=== PATIENT | male | born 1940 | race Caucasian/White ===

== ENCOUNTER 2021-11-24 14:02 | Emergency (ER) | payer OTHER, MEDICARE ==
[~2021-11-24] VITALS: Ht 170.2 cm; Wt 65.0 kg
[2021-11-24 15:15] LABS: BASOPHILS # (AUTO) 0.1 X10'3 (0-0.2); BASOPHILS % (AUTO) 0.6 % (0-1); EOSINOPHILS # (AUTO) 0.2 X10'3 (0-0.9); EOSINOPHILS % (AUTO) 2.3 % (0-6); HEMATOCRIT 40.8 % (42.0-52.0); HEMOGLOBIN 14.2 g/dl (14.0-17.9); LYMPHOCYTES # (AUTO) 1.6 X10'3 (1.1-4.8); LYMPHOCYTES % (AUTO) 17.1 % (21-51); MEAN CORPUSCULAR HEMOGLOBIN 32.4 PG (27.0-31.0); MEAN CORPUSCULAR HGB CONC 34.8 g/dL (33.0-36.5); MEAN CORPUSCULAR VOLUME 93.1 FL (78-98); MEAN PLATELET VOLUME 8.3 FL (7.4-10.4); MONOCYTES # (AUTO) 0.8 X10'3 (0-0.9); MONOCYTES % (AUTO) 8.1 % (2-12); NEUTROPHILS # (AUTO) 6.8 X10'3 (1.8-7.7); NEUTROPHILS % (AUTO) 71.9 % (42-75); PLATELET COUNT 159 X10'3 (140-440); RED BLOOD COUNT 4.39 X10'6 (4.70-6.10); RED CELL DISTRIBUTION WIDTH 13.6 % (11.5-14.5); WHITE BLOOD COUNT 9.5 X10'3 (4.5-11.0)
[2021-11-24 15:17] LABS: ALANINE AMINOTRANSFERASE 16 U/L (12-78); ALBUMIN 4.2 G/DL (3.4-5.0); ALBUMIN/GLOBULIN RATIO 1.1 (1.1-1.5); ALKALINE PHOSPHATASE 57 IU/L (46-116); ANION GAP 10 (8-16); ASPARTATE AMINO TRANSFERASE 19 U/L (10-37); BILIRUBIN,TOTAL 0.4 MG/DL (0.1-1.0); BLOOD UREA NITROGEN 12 MG/DL (7-18); BUN/CREATININE RATIO 9.7 (5.4-32.0); CALCIUM 9.3 MG/DL (8.5-10.1); CHLORIDE 105 MMOL/L (99-107); CREATININE 1.24 MG/DL (0.60-1.10); GLUCOSE 113 MG/DL (70-104); POTASSIUM 4.1 MMOL/L (3.5-5.1); SODIUM 144 MMOL/L (135-145); TOTAL CARBON DIOXIDE 29.1 MMOL/L (24-32); TOTAL PROTEIN 7.9 G/DL (6.4-8.2); eGFR 56 ML/MIN
[2021-11-24] MEDS ORDERED: SIMV-42 PO (15:18)
[2021-11-24] MEDS ORDERED: NIFE60TA79 PO (15:18)
[2021-11-24] MEDS ORDERED: LISI40TA13 PO (15:18)
[2021-11-24] MEDS ORDERED: CETI5TAB21 PO (15:18)
[2021-11-24] MEDS ORDERED: SYN0.088T PO (15:18)
[2021-11-24] MEDS ORDERED: ROPI1TAB6 PO (15:18)
[2021-11-24] MEDS ORDERED: CARV-50 PO (15:18)
[2021-11-24] MEDS ORDERED: codeine (15:18)
[2021-11-24] MEDS ORDERED: IBUP-1984 PO (15:18)
[2021-11-24] MEDS ORDERED: TERA5CAP4 PO (15:18)
[2021-11-24 15:19] LABS: ETHANOL < 0.010 GM/DL (0.0-0.010)
[2021-11-24] MEDS ORDERED: OLANZapine **IM** 10 mg inj. IM ONE (15:25)
--- NOTE | 2021-11-24 15:34 | NUR ---
Pt became very aggitated and refused to have a head CT. Walked out of his room with clinched fists and stated that he was leaving. Security and staff had to intervine and physically return him to his room.
--- NOTE | 2021-11-24 15:56 | NUR ---
Pt is continuing to refuse to have a CT and refuses stay in bed. Provider is aware.
[2021-11-24] MEDS ORDERED: diphenhydrAMINE 50 mg/ml inj IM ONE (16:55)
[2021-11-24 18:01] LABS: URINE AMPHETAMINE SCREEN NEGATIVE (Neg); URINE BARBITUATE SCREEN NEGATIVE (Neg); URINE BENZODIAZEPINES SCREEN NEGATIVE (Neg); URINE CANNABINOID SCREEN NEGATIVE (Neg); URINE COCAINE SCREEN NEGATIVE (Neg); URINE METHADONE SCREEN NEGATIVE (Neg); URINE OPIATE SCREEN POSITIVE (Neg); URINE PHENCYCLIDINE SCREEN NEGATIVE (Neg)
[2021-11-24] MEDS ORDERED: ketamine 50 mg/ml 10ml vial IM ONE ×2 (18:50)
[2021-11-24 22:19] LABS: CLARITY,URINE CLEAR (Clear); COLOR,URINE YELLOW (Yellow); GLUCOSE, URINE NEGATIVE (Neg); KETONES,URINE NEGATIVE (Neg); LEUKOCYTE ESTERASE ,URINE NEGATIVE (Neg); NITRITES, URINE NEGATIVE (Neg); OCCULT BLOOD,URINE NEGATIVE (Neg); PH,URINE 5.5 (4.8-8.0); PROTEIN,URINE NEGATIVE (Neg); UROBILINOGEN,URINE 0.2 E.U/dL (0.2-1.0)
[2021-11-24 22:20] LABS: UA COLLECTION TYPE CLN CATCH MIDSTREAM
--- NOTE | 2021-11-25 00:44 | NUR ---
Patient arrived in ED overflow. Patient was disoriented and needed to use the restroom. The pt presented very weak and needed assistance to walk to the restroom. patient used restroom with help then went to bed with assistance. Patient in bed appears to be sleeping at this time.
--- NOTE | 2021-11-25 01:07 | NUR ---
faxed packet to [facility] with ESTRELLA Ramesh
[2021-11-25] MEDS: carVEDilol 12.5mg tablet PO SCH ×2 (01:37→20:00)
--- NOTE | 2021-11-25 02:01 | NUR ---
pt refused blood pressure in order to get his Coreg medication at 0201
--- NOTE | 2021-11-25 02:05 | NUR ---
New order for Carvedilol 25mg ordered from ED provider, pt refused blood pressure to be taken and medication stating, "I don't care, I wont take it!, Let me sleep!" Patient currently lying in bed and appears to be sleeping. Will continue to monitor.
--- NOTE | 2021-11-25 02:28 | NUR ---
ED provider notified about pt's refusal to take heart medication and blood pressure.
[2021-11-25] MEDS ORDERED: ibuprofen 200mg tablet PO PRN (03:56)
--- NOTE | 2021-11-25 04:33 | NUR ---
Patient appears to be sleeping at this time. Moans on and off during sleep.
--- NOTE | 2021-11-25 07:00 | NUR ---
Patient is sleeping quietly, no distress.
[2021-11-25] MEDS: atorvastatin 20mg tablet PO SCH (08:00)
--- NOTE | 2021-11-25 09:29 | NUR ---
[facility] attempted to interview patient. He would not awaken. He has not eaten breakfast. This automobile service writer will allow patient to sleep for a while. When patient awakens attempts will be made to administer medications. Patient is in view from nurses station. He has self repositioned in bed. No distress noted.
[2021-11-25] MEDS: levoTHYROXINE 88mcg tablet PO SCH (10:16)
[2021-11-25] MEDS: cetirizine 10mg tablet PO SCH (10:16)
[2021-11-25] MEDS: lisinopril 20mg tablet PO SCH (10:26)
[2021-11-25] MEDS: NIFEdipine XL 30mg tablet PO SCH (10:33)
[2021-11-25] MEDS ORDERED: acetaminophen w/codeine (30MG) #3 tablet PO ONE (10:35)
--- NOTE | 2021-11-25 11:56 | NUR ---
Patient is alert, he is aware of time and place. He exhibits a lack of comprehention about his paranoia and thoughts of shooting people that are coming onto his property. Patient did get up to void. He did not eat his breakfast as it was cold. The patient was reluctantly compliant with taking his medications. He was given Tylenol #3 for back pain. Patient had interviewed by [facility] and told he was going to be placed on a 5150. When this justowriter operator returned with a turkey sandwich that this patient requested, the patient was in a labile mood. He stated he would not eat his turkey sandwich, "I'm not going to eat anymore. I'm going to here!
--- NOTE | 2021-11-25 12:19 | NUR ---
Patient is sleeping quietly on his left side.
--- NOTE | 2021-11-25 14:02 | NUR ---
Patient is awake, laying in bed in a mid fowlers position. He is choosing not to speak at this time.
--- NOTE | 2021-11-25 17:14 | NUR ---
Patient is sleeping, he cooperated with vital signs being taken.
--- NOTE | 2021-11-25 20:02 | NUR ---
Pt was in bed at change of shift, he states he wants to go home and is refusing to talk about anything but going home. Pt got up to use the restroom, "I pissed myself now and I hope you're all happy!" Pt was offered a change of clothing.
[2021-11-25] MEDS: terazosin 5mg capsule PO SCH (20:13)
[2021-11-25] MEDS: ROPINIRole 1mg tablet PO SCH (20:13)
--- NOTE | 2021-11-25 20:15 | NUR ---
Pt is refusing medications. Pt states "My gives me my meds at home and I take the meds I have at home, I'm a tax paying citizen and I don't want to be here! I have the right to defend my property!" Attempted to reason with patient, if he is uncomfortable and in pain, I'm offering prn motrin. Pt states "I dont care I'm not taking anything." Provided pt with education regarding his HS meds and pt continued to refuse. "I dont know why you're talking to me, I don't want to be here." Pt is also refusing to change the pants he urinated in. Pt has clean pants provided at the end of his bed.
--- NOTE | 2021-11-25 21:48 | NUR ---
Pt is moaning in bed and was offered medications again and again refused. Pt states "I hope I fall out of this bed and crack my head open!" Pts bed was lowered to the floor and he was given a warm blanket. Pt stopped moaning briefly then continued to moan and groan loudly a short time later.
--- NOTE | 2021-11-26 00:36 | NUR ---
pt appears to be sleeping rr even and unlabored
--- NOTE | 2021-11-26 03:29 | NUR ---
Pt is laying on his right side appears to be asleep rr 14
--- NOTE | 2021-11-26 03:56 | NUR ---
Pt got up and used the restroom and returned to bed. Pt was offered another blanket and states "I dont want anything from this place! I wanna go home. Im not taking anything and Im not eating until I go home!"
--- NOTE | 2021-11-26 04:55 | NUR ---
pt laying on his right side appears to be sleeping rr even and unlabored
--- NOTE | 2021-11-26 06:37 | NUR ---
Assumed patiebt care at this time.
[2021-11-26] MEDS: levoTHYROXINE 88mcg tablet PO SCH (08:00)
[2021-11-26] MEDS: atorvastatin 20mg tablet PO SCH (08:00)
[2021-11-26] MEDS: NIFEdipine XL 30mg tablet PO SCH (08:00)
[2021-11-26] MEDS: cetirizine 10mg tablet PO SCH (08:00)
[2021-11-26] MEDS: lisinopril 20mg tablet PO SCH (08:00)
--- NOTE | 2021-11-26 12:05 | NUR ---
This television writer had long conversation with patient about his medications, need for being here. Patient states he doesnt trust any other healthcare system besides the [place] and his . Rn Maternity explained to him the medications are the same ones he takes at home. He still refuses. Patient states" I wont take any medicine, I wont eat, I wont drik water, I dont want you to ask me anymore, I wont do anything until I am back at home with my ." Patient the proceded to lay down on bed.
--- NOTE | 2021-11-26 13:19 | NUR ---
Patient ambulated to restroom slowly. refuses help.
--- NOTE | 2021-11-26 13:22 | NUR ---
Patient and moaning and groaning. Patient c/o lower back pain, but states he wont take any medication here.
--- NOTE | 2021-11-26 15:05 | NUR ---
Patient laying down on stretcher, appears to be sleeping.
--- NOTE | 2021-11-26 15:34 | NUR ---
Patient relocated his bedside table out side his room
--- NOTE | 2021-11-26 16:08 | NUR ---
Patient laying down on stretcher, appears to be sleeping.
--- NOTE | 2021-11-26 16:16 | NUR ---
Patient mabulated to the restroom.
--- NOTE | 2021-11-26 16:24 | NUR ---
Pili called at 1625 today asking for an update on her . She was told that he has been resting today and that he will be reevaluated again tomorrow. She would like a call to be made to her after the evaluationn tomorrow 11/27 to see where her is at regarding coming home or awaiting placement.
--- NOTE | 2021-11-26 17:15 | NUR ---
Patient ambulated to the restoom.
--- NOTE | 2021-11-26 17:23 | NUR ---
Patient refused vital signs to be taken by this tech. "[facility] so [facility]'t [facility]. I'm not doing anything til I get out of here. "
--- NOTE | 2021-11-26 17:56 | NUR ---
Patient laying down on bed, awake, quiet.
--- NOTE | 2021-11-26 19:00 | NUR ---
Pt is laying awake in bed he is still refusing to eat or drink at this time. RN tries to reason with Pt and get him to try his dinner tray, but he refuses and says he is "on a hunger strike."
[2021-11-26] MEDS: carVEDilol 12.5mg tablet PO SCH (20:00)
--- NOTE | 2021-11-26 20:00 | NUR ---
PT refused HS medications claiming they were "knock offs" because they are not from [facility] or [facility] . RN offers to show pt the packaging and reassures him these are trult his medications that he takes at home. RN stresses the importance of medications, but pt still refuses.
[2021-11-26] MEDS: terazosin 5mg capsule PO SCH (21:00)
[2021-11-26] MEDS: ROPINIRole 1mg tablet PO SCH (21:00)
--- NOTE | 2021-11-26 21:10 | NUR ---
Pt is irritated and thinks he just got out of srugery. He states he is going to take his tractor and mow the grass so that the transients stop sleeping in it. He is very upset about people sleeping in his back lawn.
--- NOTE | 2021-11-26 23:00 | NUR ---
Pt up to use the restroom, he bends over to walk staff asks to assist him but he refuses. Pt uses the restroom and ambulates back to bed
--- NOTE | 2021-11-27 00:10 | NUR ---
Pt went to the restroom and lowered him self carefully to the floor and crawled. RN tries to assist him to get up, but he yells "this is how I do it!"
--- NOTE | 2021-11-27 02:00 | NUR ---
Pt up to use the restroom again.
--- NOTE | 2021-11-27 02:30 | NUR ---
Pt laying quietly in bed, but not sleeping
--- NOTE | 2021-11-27 03:30 | NUR ---
Pt curses occasionally, upset that he is here
--- NOTE | 2021-11-27 04:00 | NUR ---
Pt asks for a cup of water, which he does drink.
[2021-11-27 06:13] VITALS: BP_DIAS 67
--- NOTE | 2021-11-27 06:27 | NUR ---
Patient states he is having diarrhea. RN to ask Doctor for Immodium. Patient denies threatening to kill the transients living in his back yard. Patient wants to go home today to his . Continue to monitor.
--- NOTE | 2021-11-27 07:18 | NUR ---
RN collected liquid stool for C-diff culture. Green/brown. Continue to monitor. patient.
--- NOTE | 2021-11-27 08:10 | NUR ---
Patient just had his blood drawn and is eating breakfast now. No distress observed. Continue to monitor.
[2021-11-27 08:15] LABS: BASOPHILS # (AUTO) 0.1 X10'3 (0-0.2); BASOPHILS % (AUTO) 0.7 % (0-1); EOSINOPHILS # (AUTO) 0.1 X10'3 (0-0.9); EOSINOPHILS % (AUTO) 1.1 % (0-6); HEMATOCRIT 42.6 % (42.0-52.0); HEMOGLOBIN 14.7 g/dl (14.0-17.9); LYMPHOCYTES # (AUTO) 1.9 X10'3 (1.1-4.8); LYMPHOCYTES % (AUTO) 24.2 % (21-51); MEAN CORPUSCULAR HEMOGLOBIN 32.7 PG (27.0-31.0); MEAN CORPUSCULAR HGB CONC 34.5 g/dL (33.0-36.5); MEAN CORPUSCULAR VOLUME 94.6 FL (78-98); MEAN PLATELET VOLUME 8.6 FL (7.4-10.4); MONOCYTES # (AUTO) 0.7 X10'3 (0-0.9); MONOCYTES % (AUTO) 9.3 % (2-12); NEUTROPHILS # (AUTO) 5.2 X10'3 (1.8-7.7); NEUTROPHILS % (AUTO) 64.7 % (42-75); PLATELET COUNT 144 X10'3 (140-440); RED CELL DISTRIBUTION WIDTH 13.5 % (11.5-14.5)
[2021-11-27] MEDS: levoTHYROXINE 88mcg tablet PO SCH (08:28)
[2021-11-27 08:29] VITALS: BP_SYST 169
[2021-11-27] MEDS: NIFEdipine XL 30mg tablet PO SCH (08:29)
[2021-11-27] MEDS: atorvastatin 20mg tablet PO SCH (08:29)
[2021-11-27] MEDS: lisinopril 20mg tablet PO SCH (08:29)
[2021-11-27] MEDS: cetirizine 10mg tablet PO SCH (08:29)
[2021-11-27 08:35] LABS: ALANINE AMINOTRANSFERASE 19 U/L (12-78); ALBUMIN/GLOBULIN RATIO 1.1 (1.1-1.5); ALKALINE PHOSPHATASE 53 IU/L (46-116); ANION GAP 11 (8-16); BILIRUBIN,TOTAL 0.8 MG/DL (0.1-1.0); BLOOD UREA NITROGEN 21 MG/DL (7-18); BUN/CREATININE RATIO 24.7 (5.4-32.0); CALCIUM 9.1 MG/DL (8.5-10.1); CHLORIDE 105 MMOL/L (99-107); CREATININE 0.85 MG/DL (0.60-1.10); GLUCOSE 89 MG/DL (70-104); SODIUM 142 MMOL/L (135-145); TOTAL CARBON DIOXIDE 25.6 MMOL/L (24-32); TOTAL PROTEIN 7.7 G/DL (6.4-8.2); eGFR 87 ML/MIN
[2021-11-27 08:36] LABS: ASPARTATE AMINO TRANSFERASE 41 U/L (10-37); POTASSIUM 3.8 MMOL/L (3.5-5.1)
--- NOTE | 2021-11-27 08:51 | NUR ---
Patient speaking on the phone with his . No distress observed. Patient c/o back pain. RN re-adjusted his bed, but to no avail. Continue to monitor.
[2021-11-27 09:04] LABS: C DIFF SPECIMEN=DIARRHEA? ACCEPTABLE; C DIFFICILE TOXINS A&B NEGATIVE (Neg)
--- NOTE | 2021-11-27 09:32 | NUR ---
Patient up to nurses station and chatting with patient. Continue to monitor.
--- NOTE | 2021-11-27 11:22 | NUR ---
Patient reclining in bed. No distress observed. Continue to monitor.
--- NOTE | 2021-11-27 12:17 | NUR ---
Patient eating lunch. No distress observed. Continue to monitor.
--- NOTE | 2021-11-27 13:40 | NUR ---
Patient awaiting cab. Should be here in one hour. Continue to monitor.
== END 2021-11-27 13:47 | disposition home or self-care (01) ==
LOC: ER 14:02
DX: R44.1 Visual hallucinations (principal); Z20.822 Contact with and (suspected) exposure to COVID-19; R41.0 Disorientation, unspecified; Z85.9 Personal history of malignant neoplasm, unspecified; Z98.890 Other specified postprocedural states; Z88.5 Allergy status to narcotic agent; Z79.899 Other long term (current) drug therapy
CPT/HCPCS: 36415; 70450; 80053; 80305; 80320; 80329; 81003; 84443; 84484; 85025; 87045; 87046; 87324; 87449; 87811; 89055; 93005; 94799; 96372; 99285; C1758; J1200; J3490; 85347; 94760